=== PATIENT | male | born 1960 | race Caucasian/White ===

== ENCOUNTER 2016-10-14 22:31 | Emergency (ER) | payer OTHER ==
[~2016-10-14] VITALS: Ht 182.9 cm; Wt 85.0 kg
[~2016-10-14 22:31] MED LIST: DOCU1CAP39 PO; LORTA5 PO; MILKSUS5 PO
[2016-10-14 22:36] VITALS: BP 142/84; PULSE 87; RESP 16; TEMP 97.9; O2SAT 97
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
[2016-10-15] MEDS ORDERED: CYCL1TAB29 PO (00:54)
[2016-10-15] MEDS ORDERED: IBUP-232 PO (00:54)
== END 2016-10-15 01:50 | disposition home or self-care (01) ==
LOC: NEPC 22:31
DX: M54.5 Low back pain (principal); M54.2 Cervicalgia; G89.29 Other chronic pain; V43.52XA Car driver injured in collision with other type car in traffic accident, initial encounter
CPT/HCPCS: 70450; 72125; 72131